=== PATIENT | male | born 1965 | race Caucasian/White ===

== ENCOUNTER 2021-03-27 15:39 | Emergency (ER) | payer MEDICARE ==
[2021-03-27 16:10] LABS: HEMOGLOBIN 15.2 gm/dl (14.0-17.5); WHITE BLOOD COUNT 8.3 K/UL (4.5-11.0)
[2021-03-27 16:38] LABS: BUN/CREATININE RATIO 14 (0-10)
[2021-03-27] MEDS ORDERED: CARBIDOPA-LEVO1 EAC3 PO (19:53)
== END 2021-03-27 20:13 | disposition home or self-care (01) ==
LOC: ER1 15:39
PROVIDERS: Family Medicine
DX: G20 Parkinson's disease (principal); R25.1 Tremor, unspecified; E11.9 Type 2 diabetes mellitus without complications; Z87.820 Personal history of traumatic brain injury; Z91.14 Patient's other noncompliance with medication regimen; Z87.891 Personal history of nicotine dependence; R29.700 NIHSS score 0
CPT/HCPCS: 70450; 80053; 82550; 82553; 83605; 83735; 83874; 84439; 84443; 84484; 85025; 85610; 93005; 99284